=== PATIENT | female | born 1970 | race American Indian/Alaskan Native ===

== ENCOUNTER 2024-09-27 06:44 | Emergency (ER) | payer MEDICAID, SELFPAY ==
[2024-09-27 06:45] VITALS: BMI 32.3
--- NOTE | 2024-09-27 06:48 | EKG_ITS ---
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
[2024-09-27 06:53] VITALS: BP 133/89; PULSE 61; RESP 19; TEMP 36.6; O2SAT 98
--- NOTE | 2024-09-27 07:18 | XR_ITS ---
Examination: PA chest single view TECHNIQUE: Upright PA chest single view Date and time: September,, 0728 hours INDICATIONS: Chest pain beginning yesterday morning FINDINGS: Normal heart size. Lungs are clear. Moderate osteopenia IMPRESSION: No active disease
[2024-09-27 08:47] LABS: Basophils # (Auto) 0.1 Thou/mm3 (0.0-0.2); Basophils % (Auto) 1 % (0-2.5); Eosinophils # (Auto) 0.5 Thou/mm3 (0.0-0.5); Eosinophils % (Auto) 7 % (0-10); Hemoglobin 13.5 g/dL (12.0-16.0); Immature Granulocytes % (Auto) 0 % (0-0); Immature Granulocytes Auto 0.02 Thou/mm3 (0.00-0.00); Lymphocytes % (Auto) 30 % (10-50); Mean Corpuscular HGB Conc 35.5 g/dl (31.0-37.0); Mean Corpuscular Hemoglobin 32.3 pg (25.0-35.0); Mean Corpuscular Volume 91 fL (80-100); Monocytes # (Auto) 0.6 Thou/mm3 (0.0-0.8); Monocytes % (Auto) 9 % (0-12); Neutrophils # (Auto) 3.6 Thou/mm3 (1.8-7.7); Neutrophils % (Auto) 53 % (37-80); Nucleated Red Blood Cell % 0 /100 WBC (0); Platelet Count 243 Thou/mm3 (140-440); RDW Standard Deviation 46.6 fL (36.4-46.3); Red Blood Count 4.18 Miln/mm3 (4.00-5.20); White Blood Count 6.8 Thou/mm3 (3.6-11.0)
[2024-09-27 09:14] LABS: B-Type Natriuretic Peptide < 20 pg/mL (0-100)
[2024-09-27 09:15] LABS: Alanine Aminotransferase 12 U/L (10-49); Albumin, Serum 4.3 gm/dL (3.5-5.0); Albumin/Globulin Ratio 1.9 (1.2-2.2); Alkaline Phosphatase 157 U/L (46-116); Anion Gap 6 (7-16); BUN/Creatinine Ratio 17 Ratio (12-20); Bilirubin,Total 0.3 mg/dL (0.3-1.2); Blood Urea Nitrogen 10 mg/dL (9-23); Calcium 9.3 mg/dL (8.3-10.6); Calcium (Corrected) 9.3 mg/dL (8.5-10.1); Carbon Dioxide 26.7 mMol/L (20.0-31.0); Chloride 110 mMol/L (98-107); Creatinine (Component) 0.6 mg/dL (0.6-1.3); Estimated Creatinine Clearance 90.8 mL/min (>60); Globulin 2.3 gm/dL (2.3-3.5); Glucose 109 mg/dL (74-106); Osmolality,Calculated 284 (275-295); Sodium 143 mMol/L (136-145); Total Protein 6.6 gm/dL (5.7-8.2); Troponin I < 0.002 ng/mL (0.0-0.045); eGFR > 60 See Note
--- NOTE | 2024-09-27 09:39 | PD.EDCHEST ---
ED Chest Pain RME/HPI General Chief Complaint: Chest Pain Stated Complaint: CHEST PAIN Time Seen by Provider: 09/27/24 07:09 Arrival date/time: 09/27/24 06:44 This is a case of a 54-year-old female who came into the emergency room due to on and off pleuritic chest pain with mild shortness of breath and productive cough due to persistence of the symptoms this patient decided to start consult here in the emergency room Limitations: no limitations Related Data Previous Rx's ?Medication ?Instructions ?Recorded albuterol sulfate 90 mcg/actuation 1 puff inhalation QID PRN 09/27/24 aerosol inhaler (Ventolin HFA) shortness of breath or wheezing #8.5 grams azithromycin 250 mg tablet See Rx Instructions PO .COMPLEX #6 09/27/24 (Zithromax Z-Lewis) tabs prednisone 20 mg tablet 20 mg PO QDAY 5 days #5 tabs 09/27/24 Allergies Allergy/AdvReac Type Severity Reaction Status Date / Time NKA* Allergy Uncoded 07/05/15 13:12 Review of Systems Review of Systems Systems Reviewed: All systems reviewed, normal except as documented Constitutional Constitutional: Reports system reviewed and no additional complaints, except as documented ENT Ears, Nose, Mouth, and Throat: Reports system reviewed and no additional complaints, except as documented and Reports as per HPI Cardiovascular Cardiovascular: Reports system reviewed and no additional complaints, except as documented, Reports as per HPI, Reports chest pain, Denies chest pain at rest, Denies chest pain with activity, Denies claudication, Denies diaphoresis, Reports dyspnea, Denies dyspnea on exertion, Denies edema, Denies irregular heart rhythm, Denies leg edema, Denies leg ulcers, Denies lightheadedness, Denies orthopnea, Denies palpitations, Denies paroxysmal nocturnal dyspnea, Denies pedal edema, Denies radiating jaw, neck or arm pain, Denies rapid heart rate, Denies slow heart rate and Denies syncope Respiratory Respiratory: Reports system reviewed and no additional complaints, except as documented, Reports as per HPI, Denies chest congestion, Reports cough, Reports dyspnea and Denies dyspnea on exertion Neurologic Neurologic: Reports system reviewed and no additional complaints, except as documented, Reports as per HPI and Denies syncope Endocrine Endocrine: Denies palpitations Past Medical History Social History SMOKING STATUS: Current every day smoker ED Exam General Limitations: Present no limitations General appearance: Present alert and in no apparent distress; Absent appears intoxicated Head Head exam: Present atraumatic, normocephalic and normal inspection Eye Eye exam: Present normal appearance, PERRL and EOMI ENT ENT exam: Present normal exam, normal oropharynx, mucous membranes moist and TM's normal bilaterally Neck Neck exam: Present normal inspection, full ROM and trachea midline; Absent tenderness, meningismus, lymphadenopathy or thyromegaly Chest Chest inspection: Present normal inspection and symmetric chest wall rise; Absent tenderness or rash Respiratory Respiratory exam: Present normal lung sounds bilaterally and wheezes (Mild wheezing right lower lungs no crackles no rales no retraction no stridor); Absent respiratory distress, stridor, accessory muscle use or prolonged expiratory phase Cardiovascular Cardiovascular exam: Present regular rate, normal rhythm and normal heart sounds; Absent bradycardia, tachycardia, irregular rhythm, systolic murmur or diastolic murmur Abdominal Exam Abdominal exam: Present soft and normal bowel sounds; Absent tenderness Extremities Exam Extremities exam: Present normal inspection and full ROM Back Exam Back exam: Present normal inspection and full ROM Neurological Exam Neurological exam: Present alert, oriented X3, CN II-XII intact, normal gait and reflexes normal; Absent motor sensory deficit Psychiatric Psychiatric exam: Present normal affect and normal mood Skin Skin exam: Present warm, dry, intact and normal color Course Quality Measures none Orders Category Date Time Status EKG (ED ONLY) *Do not use* NOW Care 09/27/24 06:48 Completed EKG (ED Only) Stat Exams 09/27/24 06:48 Draft XR chest 1V portable Stat Exams 09/27/24 07:18 Completed BNP [B-Type Natriuretic Peptide] Stat Lab 09/27/24 08:27 Completed CBC Stat Lab 09/27/24 08:27 Completed CMP [Comprehensive Metabolic Panel] Stat Lab 09/27/24 08:27 Completed Troponin I Stat Lab 09/27/24 08:27 Completed Vital Signs Vital signs: Vital Signs Temperature 98 F 09/27/24 06:53 Pulse Rate 61 09/27/24 06:53 Respiratory Rate 19 09/27/24 06:53 Blood Pressure 133/89 H 09/27/24 06:53 Pulse Oximetry (%) 98 09/27/24 06:53 Oxygen Delivery Method Room Air 09/27/24 06:53 Patient is afebrile not tachycardic not tachypneic BP stable not hypoxic oxygen saturation is 98% in room Chest Pain MDM Narrative MDM Narrative:: This is a case of a 54-year-old female who came into the emergency room due to on and off pleuritic chest pain with mild shortness of breath and productive cough due to persistence of the symptoms this patient decided to start consult here in the emergency room patient is awake alert oriented x 4 no focal deficit steady gait afebrile not tachycardic not tachypneic not hypoxic oxygen saturation is normal in room air patient lung sounds noted mild wheezing no crackles no rales no retraction no stridor no pinpoint tenderness on the anterior chest wall patient heart normal rate regular rhythm no murmur patient also has no palpitation no signs and symptoms of myocardial infarction nor pulmonary embolism patient vital signs is stable blood test showed no leukocytosis no anemia kidney and liver function is normal no electrolyte imbalance patient troponin is negative patient BNP is normal patient EKG showed sinus rhythm at [address] or Q wave abnormality chest x-ray is also normal based on my physical examination there is no signs and symptoms of cardiac pathology nor pulmonary embolism patient chest pain is possible due to acute bronchitis since the chest pain is pleuritic in character patient was discharged with azithromycin Ventolin inhaler and steroids patient was advised to follow-up with PCP in 2 days for evaluation and to be referred to save all operator for possible echocardiogram stress test and Holter monitor patient was advised to return in the emergency room immediately or call 911 for any worsening of symptoms Patient patient was discharged with comfortable condition walking with stable gait. Patient verbalized no further complains explained diagnosis and answered patient question. Patient is comfortable with the proposed management plan including the need to follow up with his/her primary care physician and any specialist if applicable Discussed patient for any urgent condition or worsening sx, He/She needed to go to emergency room immediately or call 911. Patient acknowledge the responsibility to follow up as instructed and to monitor her/his symptoms. For any persistence of the symptoms for more than 3-5 days return precaution advised. Discussed the result of the test and was given printed discharge instruction Patient data External records reviewed:: [facility] previous records Clinical information provided by:: patient Social determinants that could affect healthcare access:: none Patient has the following chronic illnesses:: None How is presenting disease/condition affected by chronic disease/condition?: no chronic disease Evaluation data The following diagnostics were reviewed and interpreted by me:: lab results and radiology exam(s) Lab and/or radiology exams considered but not ordered:: Reviewed Interpretation Summary: Reviewed Medications / Prescriptions Medications or Prescriptions considered but not ordered:: Given Medication administrations:: Given Consultations Consultation(s) initiated? (list below): No Diagnosis Most likely diagnosis given after review of the tests above:: Acute bronchitis pleuritic chest pain Admission Indicated Admission indicated?: not indicated Explain why admission is indicated or not indicated:: Not indicated Admission Request Was there a request for admission?: No Admission Attestation Admission request attestation: Not indicated Disposition Plan Disposition Plan: Discharge Discharge Attestation Discharge Attestation: The patient and all family members were given an opportunity to ask questions and understood the discharge instructions. Discharge instructions specifically effects, indications for sooner follow up or return to the emergency department, and the expected course of current diagnosis. Patient condition: Stable Discharge Plan Plan Patient Disposition: HOME (Self Care) Prescriptions/Referrals Prescriptions/Med Rec: New azithromycin [Zithromax Z-Lewis] 250 mg tablet See Rx Instructions .ROUTE .COMPLEX Qty: 6 0RF Rx Instructions: For 250 mg dose pack: take 500 mg today (day 1), then 250 mg for 4 days (days 2-5) prednisone 20 mg tablet 20 mg PO QDAY 5 Days Qty: 5 0RF albuterol sulfate [Ventolin HFA] 90 mcg/actuation HFA aerosol inhaler 1 puff inhalation QID PRN (Reason: shortness of breath or wheezing) Qty: 8.5 0RF Referrals: Rogelio Driver PA-C [Primary Care Provider] - In 1 week Problem List Clinical Impression: Chest pain of unknown etiology, Acute bronchitis Patient/Caregiver Discharge Instructions Education Materials: Acute Bronchitis, ED Chest Pain, Uncertain Cause Additional Instructions: Follow-up with your primary care physician in 2 days for reevaluation and to be referred to save all operator for further evaluation and treatment of chest pain for possible echocardiogram stress test and Holter monitor for any recurrence persistence worsening symptoms or any emergent concern return to the emergency room immediately or call 911 Print Language: Welsh Stand Alone Forms: Phyllis Award Info., Patient Portal Info Letter BRANDEN/DEBI Supervising Physician BRANDEN/DEBI Supervising Physician: dr brasher
[2024-09-27 09:46] VITALS: BP 132/77; PULSE 78; RESP 18; TEMP 36.7; O2SAT 98
== END 2024-09-27 09:48 | disposition home or self-care (01) ==
PROVIDERS: Nurse Practitioner Family; Emergency Provider Family Medicine; PCP Physician Assistant
DX: J20.9 Acute bronchitis, unspecified (principal); R07.81 Pleurodynia; F17.200 Nicotine dependence, unspecified, uncomplicated
CPT/HCPCS: 36415; 71045; 80053; 83880; 84484; 85025; 93005; 99283

== ENCOUNTER → 2025-03-03 | Outpatient (CLI) | payer MEDICAID, SELFPAY ==
--- NOTE | 2025-03-03 14:30 | XR_ITS ---
Examination: Screening digital mammography, bilateral Computer aided detection 3-D breast Tomosynthesis, bilateral Date and time of exam: March 03, 2025, 1429 hours, compared to mammograms dating to June 30, 2022 Indication: Screening Technique: Nonmagnified MLO, CC views of the breasts to been obtained, reconstructed from 3-D Tomosynthesis images. R2 computer aided detection program utilized for evaluation of suspicious masses and/or abnormal calcifications. 3-D Tomosynthesis images obtained. Findings: Scattered areas of fibroglandular density. Benign calcifications. Implants appear intact No interval suspicious masses Impression: BI-RADS category II: Benign Findings. Recommend 1 year follow-up mammogram.
== END | disposition home or self-care (01) ==
LOC: CDIM 14:21
PROVIDERS: Referring Provider Physician Assistant; Visit Provider Physician Assistant
DX: Z12.31 Encounter for screening mammogram for malignant neoplasm of breast (principal); R92.323 Mammographic fibroglandular density, bilateral breasts; R92.1 Mammographic calcification found on diagnostic imaging of breast
CPT/HCPCS: 77063; 77067